=== PATIENT | female | born 1975 | race Two or more races ===

== ENCOUNTER 2017-06-26 20:49 | Emergency (ER) | payer SELFPAY ==
[~2017-06-26] VITALS: Ht 167.6 cm; Wt 67.1 kg
[2017-06-26 21:01] VITALS: BP 134/75
[2017-06-26] MEDS ORDERED: TRAM50TA PO (21:11)
[2017-06-26] MEDS ORDERED: AMOX1TAB61 PO (21:11)
[2017-06-26] MEDS ORDERED: CIPR7.5D EACH EAR (21:11)
--- NOTE | 2017-06-26 21:11 | PHYS DOC ---
Adult General Chief Complaint Chief Complaint: EARACHE/EAR PAIN HPI HPI Patient is a 41 year old female with a history of diabetes and previous ear infections presents the ED complaining of bilateral ear pain 5 days. Describes the pain as sharp. Rates the pain as 8 out of 10. Denies recent swimming, headache, vision changes, nausea/vomiting, neck pain, photophobia, chest pain, shortness of breath, fever or weakness. Review of Systems Review of Systems Constitutional: Denies fever or chills [] Eyes: Denies change in visual acuity, redness, or eye pain [] HENT: Complains of ear pain. Denies nasal congestion or sore throat [] Respiratory: Denies cough or shortness of breath [] Cardiovascular: No additional information not addressed in HPI [] GI: Denies abdominal pain, nausea, vomiting, bloody stools or diarrhea [] : Denies dysuria or hematuria [] Musculoskeletal: Denies back pain or joint pain [] Integument: Denies rash or skin lesions [] Neurologic: Denies headache, focal weakness or sensory changes [] Endocrine: Denies polyuria or polydipsia [] All other systems were reviewed and found to be within normal limits, except as documented in this note. Current Medications Current Medications Current Medications Medications (Trade) Dose Ordered Sig/Ayan Start Time Stop Time Status Last Admin Dose Admin Acetaminophen/ Hydrocodone Bitart (Lortab 5/325) 1 tab 1X ONCE 06/26/17 21:30 06/26/17 21:31 DC 06/26/17 21:35 1 TAB Ceftriaxone Sodium (Rocephin Im) 0.5 gm 1X ONCE 06/26/17 21:30 06/26/17 21:31 DC 06/26/17 21:36 0.5 GM Allergies Allergies Allergies Coded Allergies Type Severity Reaction Last Updated Verified No Known Drug Allergies 06/26/17 No Physical Exam Physical Exam Constitutional: Well developed, well nourished, no acute distress, non-toxic appearance. [] HENT: Normocephalic, atraumatic, MILD RIGHT TM ERYTHEMA AND BULGING. MILD LEFT EAR CANAL SWELLING AND ERYTHEMA. UNABLE TO VISUALIZED LEFT TM. oropharynx moist , no oral exudates, nose normal. [] Eyes: PERRLA, EOMI, conjunctiva normal, no discharge. [] Neck: Normal range of motion, no tenderness, supple, no stridor. [] Cardiovascular:Heart rate regular rhythm, no murmur [] Lungs & Thorax: Bilateral breath sounds clear to auscultation [] Abdomen: Bowel sounds normal, soft, no tenderness, no masses, no pulsatile masses. [] Skin: Warm, dry, no erythema, no rash. [] Neurologic: Alert and oriented X 3, normal motor function, normal sensory function, no focal deficits noted. [] Psychologic: Affect normal, judgement normal, mood normal. [] Current Patient Data Vital Signs Vital Signs Date Time Temp Pulse Resp B/P (MAP) Pulse Ox O2 Delivery O2 Flow Rate FiO2 06/26/17 21:35 Room Air 06/26/17 21:01 99.0 100 16 97 99.0 EKG EKG [] Radiology/Procedures Radiology/Procedures [] Course & Med Decision Making Course & Med Decision Making Pertinent Labs and Imaging studies reviewed. (See chart for details) []Patient treated with Rocephin in ED and analgesics. Discussed symptomatic treatment outpatient. Will prescribe antibiotic drops and oral Augmentin outpatient. Discussed follow-up with ENT this week. Discussed reasons to return to the ED. Patient understands and agrees with plan. Dragon Disclaimer Dragon Disclaimer This electronic medical record was generated, in whole or in part, using a voice recognition dictation system. Departure Departure Impression: Primary Impression: Otitis externa Additional Impression: Otitis media Disposition: 01 HOME, SELF-CARE Condition: IMPROVED Referrals: ABBI ARIAS MD (PCP) JEN DOYLE MD Patient Instructions: Otitis Externa, Otitis Media, Adult Scripts Ofloxacin (OFLOXACIN) 5 Ml Drops 5 DROP EACH EAR BID for 7 Days, #10 ML Prov: EDWARD LUCIO 06/26/17 Tramadol Hcl (TRAMADOL HCL) 50 Mg Tablet 1 TAB PO PRN Q6HRS, #12 TAB Prov: EDWARD LUCIO 06/26/17 Amoxicillin/Potassium Clav (AUGMENTIN 875-125 TABLET) 1 Each Tablet 1 TAB PO BID, #20 TAB Prov: EDWARD LUCIO 06/26/17 Problem Qualifiers EDWARD LUCIO Jun 26, 2017 21:11
[2017-06-26] MEDS ORDERED: OFLO5DRO7 EACH EAR (21:13)
[2017-06-26] MEDS ORDERED: cefTRIAXone IM 1 GM VIAL IM ONE (21:30)
[2017-06-26] MEDS ORDERED: HYDROcodone/APAP 5/325MG 1 TAB TABLET PO ONE (21:30)
== END 2017-06-26 21:46 | disposition home or self-care (01) ==
LOC: ER 20:49
DX: H60.92 Unspecified otitis externa, left ear (principal); H66.91 Otitis media, unspecified, right ear; E11.9 Type 2 diabetes mellitus without complications
CPT/HCPCS: 96372; 99283; J0696